=== PATIENT | male | born 1965 | race Caucasian/White ===

== ENCOUNTER → 2017-04-28 | Outpatient (CLI) | payer BC | LOC: RAD 14:49 | DX: S42.022D Displaced fracture of shaft of left clavicle, subsequent encounter for fracture with routine healing (principal); X58.XXXD Exposure to other specified factors, subsequent encounter ==

== ENCOUNTER → 2017-06-04 | Outpatient (CLI) | payer BC | LOC: LAB 07:59 | DX: K21.9 Gastro-esophageal reflux disease without esophagitis (principal); E78.5 Hyperlipidemia, unspecified ==

== ENCOUNTER → 2018-05-11 | Outpatient (CLI) | payer BC ==
[2018-05-11 08:44] LABS: ALBUMIN 4.3 g/dL (3.5-5.0); CALCIUM 9.4 mg/dL (8.4-10.2); TOTAL BILIRUBIN 0.4 mg/dL (0.2-1.3); TOTAL PROTEIN 7.4 g/dL (6.3-8.2)
== END ==
LOC: LAB 08:00
PROVIDERS: Family Medicine
DX: Z13.1 Encounter for screening for diabetes mellitus (principal); G62.9 Polyneuropathy, unspecified; K21.9 Gastro-esophageal reflux disease without esophagitis; E78.5 Hyperlipidemia, unspecified

== ENCOUNTER → 2018-05-27 | Outpatient (CLI) | payer BC ==
[~2018-05-27] VITALS: Ht 172.7 cm; Wt 84.5 kg
[~2018-05-27] MED LIST: IMODIUM A-D2 M2 PO; NEURONTIN300 MG/CAP PO; TURMERIC 500 M1 EACH PO
[2018-05-27 18:08] VITALS: BP 126/88
== END ==
LOC: AMSURD 17:50
DX: Z00.00 Encounter for general adult medical examination without abnormal findings (principal); R07.9 Chest pain, unspecified; K21.9 Gastro-esophageal reflux disease without esophagitis; E78.5 Hyperlipidemia, unspecified; G62.9 Polyneuropathy, unspecified

== ENCOUNTER → 2018-06-04 | Outpatient (CLI) | payer BC ==
[2018-05-27 18:08] VITALS: BP 126/88
== END ==
LOC: CARDLAB 08:11 → CARDREHAB 13:26
DX: Z13.6 Encounter for screening for cardiovascular disorders (principal); R07.9 Chest pain, unspecified
CPT/HCPCS: A9500

== ENCOUNTER → 2018-09-15 | Outpatient (CLI) | payer BC ==
[2018-05-27 18:08] VITALS: BP 126/88
== END ==
LOC: RAD 12:33
DX: J34.89 Other specified disorders of nose and nasal sinuses (principal)

== ENCOUNTER → 2018-11-08 | Outpatient (CLI) | payer BC ==
[2018-05-27 18:08] VITALS: BP 126/88
== END ==
LOC: RAD 15:40
DX: I67.82 Cerebral ischemia (principal); Z85.038 Personal history of other malignant neoplasm of large intestine
CPT/HCPCS: A9585